=== PATIENT | female | born 1945 | race African-American/Black ===

== ENCOUNTER 2017-02-17 06:44 | Inpatient (IN) | payer BC ==
[~2017-02-17] VITALS: Ht 154.9 cm; Wt 45.4 kg
[2017-02-17 08:56] LABS: BASOPHILS % 0.7 % (0.0-2.0); EOSINOPHILS % 0.4 % (0.0-5.0); HEMATOCRIT. 41.3 % (36.0-48.0); LYMPHOCYTES % 7.7 % (20.0-50.0); MEAN CORPUSCULAR HEMOGLOBIN 30.1 pg (28.0-32.0); MEAN CORPUSCULAR VOLUME 88.7 fL (81.0-99.0); MEAN PLATELET VOLUME 8.5 fl (7.4-10.4); MONOCYTES % 4.5 % (2.0-8.0); NEUTROPHILS % 86.7 % (40.0-76.0); PLATELET 275 x1000/uL (130-400); RED BLOOD CELL COUNT 4.66 mill/uL (4.2-5.4); RED CELL DISTRIBUTION WIDTH 13.4 % (11.6-14.6)
[2017-02-17] MEDS ORDERED: ALBUTEROL (0.083%) 2.5MG/3ML NEB HHN STA ×2 (09:35→13:14)
[2017-02-17] MEDS ORDERED: IPRATROPIUM BROMIDE (0.02%) 0.5MG/2.5ML NEB HHN STA (09:35)
[2017-02-17] MEDS ORDERED: IOHEXOL-350 100 ML BOTTLE ONE (11:27)
[2017-02-17] MEDS ORDERED: SODIUM CHLORIDE 0.9% 10ML VIAL ONE (11:27)
[2017-02-17] MEDS ORDERED: PREDNISONE 20MG TABLET PO ONE (13:15)
[2017-02-17 13:57] LABS: BASOPHILS % 0.5 % (0.0-2.0); EOSINOPHILS % 0.2 % (0.0-5.0); HEMATOCRIT. 41.8 % (36.0-48.0); HEMOGLOBIN. 14.2 g/dL (12.0-16.0); LYMPHOCYTES % 11.2 % (20.0-50.0); MEAN CORPUSCULAR HEMOGLOBIN 30.4 pg (28.0-32.0); MEAN CORPUSCULAR VOLUME 89.4 fL (81.0-99.0); MEAN PLATELET VOLUME 8.7 fl (7.4-10.4); MONOCYTES % 4.4 % (2.0-8.0); NEUTROPHILS % 83.7 % (40.0-76.0); PLATELET 289 x1000/uL (130-400); RED BLOOD CELL COUNT 4.68 mill/uL (4.2-5.4); RED CELL DISTRIBUTION WIDTH 13.3 % (11.6-14.6)
[2017-02-17 14:07] LABS: CARBON DIOXIDE 24 mEq/L (21-32); CHLORIDE 100 mEq/L (98-107)
[2017-02-17 14:59] LABS: TROPONIN I < 0.02 ng/mL (0.00-0.04)
[2017-02-17] MEDS ORDERED: CLONIDINE 0.1MG TABLET PO PRN (16:45)
[2017-02-17] MEDS ORDERED: ACETAMINOPHEN 650MG SUPP PR PRN (16:45)
[2017-02-17] MEDS ORDERED: DIPHENHYDRAMINE 50MG/ML VIAL IV PRN (16:45)
[2017-02-17] MEDS ORDERED: ONDANSETRON HCL 4MG/2ML VIAL IV PRN (16:45)
[2017-02-17] MEDS ORDERED: MAGNESIUM/ALUMINUM HYDROXIDE/SIMETHICONE 30ML UDC PO PRN (16:45)
[2017-02-17] MEDS ORDERED: DOCUSATE SODIUM 100MG CAPSULE PO PRN (16:45)
[2017-02-17] MEDS ORDERED: IPRATROPIUM/ALBUTEROL 0.5-3(2.5)MG/3ML NEB INH PRN (16:45)
[2017-02-17] MEDS ORDERED: ACETAMINOPHEN 325MG TABLET PO PRN (16:45)
[2017-02-17] MEDS ORDERED: ACETAMINOPHEN 650MG/20.3ML UDC GT PRN (16:45)
[2017-02-17] MEDS ORDERED: HYDROCODONE/ACETAMINOPHEN 5/325MG TABLET PO PRN (16:45)
[2017-02-17] MEDS ORDERED: NA PHOS,M-B/NA PHOS,DI-BA ENEMA 118ML PR PRN (16:45)
[2017-02-17] MEDS ORDERED: DEXTROSE 50% WATER 50ML SYRINGE IV PRN (17:00)
[2017-02-17 17:57] LABS: CLARITY URINE CLEAR (CLEAR); COLOR URINE YELLOW (YELLOW); GLUCOSE URINE TRACE (NEGATIVE); KETONES URINE NEGATIVE (NEGATIVE); LEUKOCYTE ESTERASE URINE NEGATIVE (NEGATIVE); NITRITE URINE NEGATIVE (NEGATIVE); OCCULT BLOOD URINE NEGATIVE (NEGATIVE); PH URINE 7.5 (4.5-8.0); PROTEIN URINE 1+ (NEGATIVE); SPECIFIC GRAVITY URINE 1.066 (1.005-1.030)
[2017-02-17] MEDS ORDERED: GUAIFENESIN 200MG/10ML SUGAR FREE UDC PO PRN (18:05)
[2017-02-17 20:00] VITALS: BP 146/86
[2017-02-17 20:34] VITALS: BP 146/86
[2017-02-17] MEDS ORDERED: METO100T5 PO (20:49)
[2017-02-17] MEDS ORDERED: AMLO10TA4 PO (20:49)
[2017-02-17] MEDS: BLOOD SUGAR DIAGNOSTIC STRIP TEST SCH (21:07)
[2017-02-17] MEDS: SODIUM CHLORIDE 0.9% INJ 3ML FLUSH IVF SCH (21:43)
[2017-02-17] MEDS: METHYLPREDNISOLONE SOD SUCC 40 MG/ML VIAL IV SCH (21:43)
[2017-02-17] MEDS ORDERED: POTASSIUM CHLORIDE 20MEQ TABLET SR PO NR (21:45)
[2017-02-17] MEDS: INSULIN LISPRO 100 UNITS/ML SUBCUT SCH (21:51)
[2017-02-17] MEDS: PROMETHAZINE LIQUID 6.25MG/5ML 118ML PO PRN (23:13)
[2017-02-17 23:25] LABS: CREATINE KINASE 166 IU/L (26-192); TROPONIN I < 0.02 ng/mL (0.00-0.04)
[2017-02-17] MEDS: IPRATROPIUM/ALBUTEROL 0.5-3(2.5)MG/3ML NEB INH SCH (23:48)
[2017-02-18] VITALS: BP 123/81
[2017-02-18 04:00] VITALS: BP 131/87
[2017-02-18] MEDS: METHYLPREDNISOLONE SOD SUCC 40 MG/ML VIAL IV SCH ×3 (04:33→20:33)
[2017-02-18 05:24] LABS: BASOPHILS % 0.1 % (0.0-2.0); HEMATOCRIT. 37.8 % (36.0-48.0); HEMOGLOBIN. 12.9 g/dL (12.0-16.0); LYMPHOCYTES % 13.2 % (20.0-50.0); MEAN CORPUSCULAR HEMOGLOBIN 30.2 pg (28.0-32.0); MEAN CORPUSCULAR VOLUME 88.8 fL (81.0-99.0); MEAN PLATELET VOLUME 8.7 fl (7.4-10.4); MONOCYTES % 3.2 % (2.0-8.0); NEUTROPHILS % 83.5 % (40.0-76.0); PLATELET 243 x1000/uL (130-400); RED BLOOD CELL COUNT 4.25 mill/uL (4.2-5.4); RED CELL DISTRIBUTION WIDTH 13.5 % (11.6-14.6)
[2017-02-18] MEDS: SODIUM CHLORIDE 0.9% INJ 3ML FLUSH IVF SCH ×3 (05:42→22:23)
[2017-02-18] MEDS: BLOOD SUGAR DIAGNOSTIC STRIP TEST SCH ×4 (05:43→22:00)
[2017-02-18] MEDS: INSULIN LISPRO 100 UNITS/ML SUBCUT SCH ×4 (05:43→22:22)
[2017-02-18 06:40] LABS: CARBON DIOXIDE 24 mEq/L (21-32); CHLORIDE 102 mEq/L (98-107); CREATINE KINASE 152 IU/L (26-192); HDL CHOLESTEROL 82 mg/dL (40-59); LDL CHOLESTEROL 104 mg/dL (5-100); TROPONIN I < 0.02 ng/mL (0.00-0.04)
[2017-02-18 07:38] VITALS: BP 126/88
[2017-02-18] MEDS: IPRATROPIUM/ALBUTEROL 0.5-3(2.5)MG/3ML NEB INH SCH ×3 (08:59→20:40)
[2017-02-18] MEDS: AMLODIPINE 10MG TABLET PO SCH (09:09)
[2017-02-18] MEDS: METOPROLOL TARTRATE 50MG TABLET PO SCH ×2 (09:09→22:22)
[2017-02-18 11:35] VITALS: BP 114/84
[2017-02-18] MEDS ORDERED: POTASSIUM CHLORIDE 20MEQ TABLET SR PO SCH (11:45)
[2017-02-18] MEDS: BUDESONIDE 0.5MG/2ML NEB HHN SCH (13:45)
[2017-02-18] MEDS ORDERED: LEVO250T2 PO (14:38)
[2017-02-18] MEDS ORDERED: P50 PO (14:38)
[2017-02-18] MEDS ORDERED: PULM50 HHN (14:38)
[2017-02-18] MEDS ORDERED: ALBU18HF2 IH (14:40)
[2017-02-18] MEDS: PROMETHAZINE LIQUID 6.25MG/5ML 118ML PO PRN ×2 (15:13→22:22)
[2017-02-18 15:19] VITALS: BP 125/77
[2017-02-18 20:41] VITALS: BP 126/86
[2017-02-19 01:03] VITALS: BP 129/85
[2017-02-19] MEDS: IPRATROPIUM/ALBUTEROL 0.5-3(2.5)MG/3ML NEB INH SCH ×3 (01:05→14:46)
[2017-02-19] MEDS: BUDESONIDE 0.5MG/2ML NEB HHN SCH ×2 (01:05→08:09)
[2017-02-19 04:30] VITALS: BP 130/86
[2017-02-19] MEDS: METHYLPREDNISOLONE SOD SUCC 40 MG/ML VIAL IV SCH ×2 (04:45→12:05)
[2017-02-19] MEDS: SODIUM CHLORIDE 0.9% INJ 3ML FLUSH IVF SCH ×2 (06:00→17:06)
[2017-02-19 06:48] LABS: BASOPHILS % 0.2 % (0.0-2.0); HEMATOCRIT. 34.8 % (36.0-48.0); HEMOGLOBIN. 11.6 g/dL (12.0-16.0); LYMPHOCYTES % 8.7 % (20.0-50.0); MEAN CORPUSCULAR VOLUME 90.4 fL (81.0-99.0); MEAN PLATELET VOLUME 8.8 fl (7.4-10.4); MONOCYTES % 5.6 % (2.0-8.0); NEUTROPHILS % 85.5 % (40.0-76.0); PLATELET 245 x1000/uL (130-400); RED BLOOD CELL COUNT 3.85 mill/uL (4.2-5.4); RED CELL DISTRIBUTION WIDTH 13.9 % (11.6-14.6)
[2017-02-19] MEDS: INSULIN LISPRO 100 UNITS/ML SUBCUT SCH ×3 (07:15→17:04)
[2017-02-19] MEDS: BLOOD SUGAR DIAGNOSTIC STRIP TEST SCH ×3 (07:20→16:45)
[2017-02-19 07:47] LABS: CARBON DIOXIDE 23 mEq/L (21-32); CHLORIDE 108 mEq/L (98-107)
[2017-02-19 08:00] VITALS: BP 128/93
[2017-02-19] MEDS: METOPROLOL TARTRATE 50MG TABLET PO SCH (08:31)
[2017-02-19] MEDS: AMLODIPINE 10MG TABLET PO SCH (08:31)
[2017-02-19] MEDS ORDERED: LEVOFLOXACIN 250MG TABLET PO SCH (11:00)
[2017-02-19] MEDS ORDERED: LEVOFLOXACIN 500MG TABLET PO SCH (11:45)
[2017-02-19 12:00] VITALS: BP 150/91
[2017-02-19 16:00] VITALS: BP 120/83
[2017-02-19] MEDS ORDERED: SODIUM CHLORIDE 0.45% 1,000 ML IV SCH (17:45)
[2017-02-19 18:48] VITALS: BP 120/83
[2017-02-19] MEDS ORDERED: ACETYLCYSTEINE 200MG/ML 20% VIAL 4ML PO SCH (20:00)
[2017-02-20] MEDS ORDERED: LEVOFLOXACIN 250MG TABLET PO SCH (11:00)
== END 2017-02-19 19:35 | disposition home or self-care (01) | DRG 871 ==
LOC: ER 06:45 → 5WST 15:17 → ENRESERV 16:02
PROVIDERS: ADMIT Internal Medicine; ATTEND Internal Medicine
DX: A41.9 Sepsis, unspecified organism (principal); J96.00 Acute respiratory failure, unspecified whether with hypoxia or hypercapnia; N17.9 Acute kidney failure, unspecified; J44.0 Chronic obstructive pulmonary disease with (acute) lower respiratory infection; E87.2 Acidosis; J45.901 Unspecified asthma with (acute) exacerbation; I11.0 Hypertensive heart disease with heart failure; I50.9 Heart failure, unspecified; J44.1 Chronic obstructive pulmonary disease with (acute) exacerbation; J20.9 Acute bronchitis, unspecified; D63.8 Anemia in other chronic diseases classified elsewhere; R73.9 Hyperglycemia, unspecified; F17.210 Nicotine dependence, cigarettes, uncomplicated; Z79.84 Long term (current) use of oral hypoglycemic drugs; Z79.899 Other long term (current) drug therapy
CPT/HCPCS: 36415; 71010; 71275; 80053; 80061; 81001; 82550; 82962; 83036; 83615; 83690; 83880; 84484; 85025; 85379; 87040; 87086; 87804; 93005; 93306; 93970; 94640; 99285; A4216; J1815; J2405; J2920; J7512; J7608; J7611; J7620; J7626; Q0169; Q9967